=== PATIENT | male | born 1940 | race Caucasian/White ===

== ENCOUNTER → 2017-11-12 | Outpatient (CLI) | payer MEDICARE, BC ==
[~2017-11-12] MED LIST: ADULT LOW DOSE81 MG PO; AGGRENOX CAPSU1 EACH PO; FISH OIL 1,001000 MG PO; MULTIVITAMINS PO; PROTONIX40 M2 PO
--- NOTE | 2017-11-24 23:34 | ONC ---
[place] [address] RADIATION ONCOLOGY NOTE Name: GARRETT BEAR Room: [facility]#: [id number] Admission: 11/12/17 Attend Phys: Blaise Inman MD Discharge: Date of : 42 Report #: [id number] THIS REPORT FOR: //name// CC: Blaise Mckinnon MD DATE OF SERVICE: 11/12/2017 REFERRING PHYSICIANS: Dr. Casa Mckinnon, Dr. Carlos A Maza, Dr. Lorenzo Charles, Dr. Hurtado. [facility] phone is [phone]. PRIMARY SITE AND HISTOPATHOLOGY: The patient has a stage III base of tongue cancer and he underwent chemoradiotherapy and completed radiation therapy on 02/12/2011. PROCEDURE: Nasopharyngolaryngoscopy. FINDINGS: On nasopharyngolaryngoscopy, after administration of a small amount of 2% viscous lidocaine orally and 2% viscous lidocaine gel to the left nostril via a cotton swab, there were no visible lesions in the nasopharynx. There were no visible lesions in the posterior oropharynx. The base of tongue had no visible lesions. The true vocal cords were normally mobile bilaterally without any visible lesions. There was no evidence of head and neck cancer. Thank you for allowing me to participate in the care of this patient. <ELECTRONICALLY SIGNED> By: Blaise Inman MD 11/24/17 2334 1211 1320Darosette Inman MD /nt
--- NOTE | 2017-11-24 23:48 | ONC ---
[place] [address] RADIATION ONCOLOGY NOTE Name: GARRETT BEAR Room: [facility]#: [id number] Admission: 11/12/17 Attend Phys: Blaise Inman MD Discharge: Date of : 42 Report #: [id number] THIS REPORT FOR: //name// CC: Blaise Hurtado DATE OF SERVICE: 11/12/2017 [facility] phone is [phone] REFERRING PHYSICIANS: Dr. Casa Mckinnon, Dr. Cevallos, Dr. Ivan Maza, Dr. Lorenzo Charles, Dr. Avila. PRIMARY SITE AND HISTOPATHOLOGY: The patient received chemoradiotherapy for a stage III base of tongue cancer. Radiation therapy was completed on 02/12/2011. INTERVAL NOTE: The patient felt like he was eating well. He started taking CBD essential oils and this has made him feel better. He felt like he was eating better. MEDICATIONS: Include Protonix, fish oil, 75 mcg of levothyroxine per day, Xarelto and Aricept. SOCIAL HISTORY: The patient quit smoking in 1974. He does not smoke at this time. REVIEW OF SYSTEMS: RESPIRATORY: The patient was not short of breath. The patient's breathing was baseline. GASTROINTESTINAL: He has a good appetite. He is eating a regular diet. PHYSICAL EXAMINATION: VITAL SIGNS: The patient weighed 165.6 pounds, he was 172.8 pounds in 11/13/2016. On 11/12/2017 blood pressure was 158/86, pulse 64, respirations 20. LYMPH NODES: No palpable cervical or supraclavicular lymphadenopathy. HEAD, EYES, EARS, NOSE AND THROAT EXAM: Mouth had no suspicious visible lesions or suspicious palpable lesions. On nasopharyngolaryngoscopy, after the patient was given a small amount of 2% viscous lidocaine orally as well as 2% [place] [address] RADIATION ONCOLOGY NOTE Name: GARRETT BEAR [id number] Admission: 11/12/17 Attend Phys: Blaise Inman MD Discharge: Date of : 42 Report #: [id number] lidocaine to the left nostril via a cotton swab, there were no visible lesions in the nasopharynx. There were no visible lesions in the posterior oropharynx. The true vocal cords were normally mobile bilaterally without any visible lesions. There were no lesions at the base of tongue area. HEART: had a regular rate and rhythm without murmur. LUNGS: were clear to auscultation. LABORATORY DATA: From 10/27/2017, TSH was 3.76 on his present dose of 75 mcg of levothyroxine, which was within normal limits. BUN was 19, creatinine 1.29. Sodium 137, potassium 4.1. AST 26, ALT 15. ASSESSMENT AND PLAN: 1. History of head and neck cancer- There is no evidence of head and neck cancer at this time. The patient was given a requisition for a basic metabolic panel in October 2018. He was asked to schedule a follow up appointment to see me afterwards. 2. Hypothyroidism- The patient's TSH was within normal limits on his present dose of 75 mcg levothyroxine, so a refill was given for 75 mcg. levothyroxine. he was given a requisition for a TSH in about 1 year. He was asked to schedule a followup appointment to see me afterwards. 3. Dental care- The patient was given a prescription for PreviDent to use for dental care. 4. Nutrition- The patient was offered a referral to a dietitian for nutritional issues. He felt like he was eating well and he did not wish to see a dietitian. Thank you for allowing me to participate in the care of this patient. <ELECTRONICALLY SIGNED> By: Blaise Inman MD 11/24/17 2348 1216 1741Djoseluis Inman MD /nt
== END ==
LOC: M.RTH 01:29
DX: Z08 Encounter for follow-up examination after completed treatment for malignant neoplasm (principal); E03.9 Hypothyroidism, unspecified; Z85.89 Personal history of malignant neoplasm of other organs and systems

== ENCOUNTER → 2018-05-22 | Outpatient (CLI) | payer MEDICARE, BC ==
--- NOTE | 2018-05-31 11:46 | ONC ---
[place] [address] RADIATION ONCOLOGY NOTE Name: GARRETT BEAR Room: [facility]#: [id number] Admission: 05/22/18 Attend Phys: Blaise Inman MD Discharge: Date of : 41 Report #: [id number] THIS REPORT FOR: //name// CC: Blaise Cevallos DATE OF SERVICE: 05/22/2018 Radiation Oncology Procedure Note REFERRING PHYSICIANS: Carlos A Maza MD; Lorenzo Charles MD; Casa Mckinnon MD; Dr. Hurtado; [facility] phone is [phone]. PRIMARY SITE AND HISTOPATHOLOGY: The patient had a stage III base of tongue cancer and underwent chemoradiotherapy. He completed radiation therapy on 02/12/2011. PROCEDURE: Nasopharyngolaryngoscopy. FINDINGS ON NASOPHARYNGOLARYNGOSCOPY: After administration of small amount of 2% viscous lidocaine orally and 2% viscous lidocaine gel to the left nostril via a cotton swab, there were no visible lesions in the nasopharynx. There were no visible lesions involving the posterior pharynx. The base of tongue had no visible lesions. The true vocal cords were normally mobile bilaterally without any visible lesions. There is no evidence of head and neck cancer. Thank you for allowing me to participate in the care of this patient. <ELECTRONICALLY SIGNED> By: Blaise Inman MD 05/31/18 1146 1246 0024Djoseluis Inman MD /nt
--- NOTE | 2018-05-31 12:01 | ONC ---
[address] [address] RADIATION ONCOLOGY NOTE Name: GARRETT BEAR Room: [facility]#: [id number] Admission: 05/22/18 Attend Phys: Blaise Inman MD Discharge: Date of : 42 Report #: [id number] THIS REPORT FOR: //name// CC: Blaise Hurtado DATE OF SERVICE: 05/22/2018 REFERRING PHYSICIANS: Casa Mckinnon MD; Dr. Cevallos; Carlos A Maza MD; Lorenzo Charles MD; Dr. Hurtado. [facility] phone is [phone]. PRIMARY SITE AND HISTOPATHOLOGY: The patient received chemoradiotherapy for a stage III base of tongue cancer. Radiation therapy was completed on 02/12/2011. INTERVAL NOTE: The patient said that he is being treated for possibly an early stage of dementia. He has issues with swallowing pills. They get stuck and he has been seeing the gastroenterologists, Dr. Mt Howard and Dr. Johansen, to evaluate that issue. He did not feel a dilation helped him last time. MEDICATIONS: Include Protonix, fish oil, 75 mcg of levothyroxine per day, Xarelto, and Aricept. SOCIAL HISTORY: The patient quit smoking in 1974. He does not smoke at this time. REVIEW OF SYSTEMS: RESPIRATORY: The patient was not short of breath. The patient's breathing was baseline. GASTROINTESTINAL: He has a good appetite. He is eating a regular diet. PHYSICAL EXAMINATION: VITAL SIGNS: The patient weighed 164.6 pounds on 05/22/2018, 165.6 pounds 11/12/2017. On 05/22/2018, blood pressure was 126/68, pulse 52, respirations 22, oxygen saturation 98%. LYMPH NODES: She had no palpable cervical or supraclavicular lymphadenopathy. HEAD, EYES, EARS, NOSE AND THROAT: Mouth had no suspicious visible lesions or suspicious palpable lesions. On nasopharyngolaryngoscopy. After the patient was given a small amount of 2% viscous lidocaine orally, as well as 2% viscous lidocaine to the left nostril, there were no visible lesions in the nasopharynx [place] [address] RADIATION ONCOLOGY NOTE Name: GARRETT BEAR Room: [facility]#: [id number] Admission: 05/22/18 Attend Phys: Blaise Inman MD Discharge: Date of : 42 Report #: [id number] lesions in the posterior pharynx. The true vocal cords were normally mobile bilaterally without any visible lesions. There were no lesions in the base of tongue area. HEART: Had a regular rate and rhythm without murmur. LUNGS: were clear to auscultation. LABORATORY DATA: From 10/27/2017, BUN was 19, creatinine 1.29. Sodium 137, potassium 4.1. AST 26, ALT 15, TSH was 3.76. ASSESSMENT AND PLAN: 1. History of head and neck cancer- There is no evidence of head and neck cancer at this time. The patient had a complete metabolic panel ordered in 09/2018. He was asked to schedule a follow up appointment to see me afterwards. 2. Hypothyroidism- The patient's TSH was within normal limits on his present dose of 75 mcg of levothyroxine, so a refill was given for 75 mcg of levothyroxine and a requisition was written for a around 09/2018. He was asked to schedule a follow up appointment to see me afterwards. 3. Nutrition.- The patient now has a full set of dentures. He no longer has his own teeth and he feels like he is able to eat rather well. 4. Mild dysphagia- The patient was referred for a video swallow study. He is already following up with gastroenterology to try to determine why this is occurring. He was asked to follow up with me around 09/2018. His weight is relatively stable in spite of this issue with swallowing pills and he ultimately is able to swallow most foods in his diet. Thank you for allowing me to participate in the care of this patient. <ELECTRONICALLY SIGNED> By: Blaise Inman MD 05/31/18 1201 1251 0052Djoseluis Inman MD /nt
== END ==
LOC: M.RTH 02:32
DX: Z08 Encounter for follow-up examination after completed treatment for malignant neoplasm (principal); E03.9 Hypothyroidism, unspecified; R13.10 Dysphagia, unspecified; Z85.89 Personal history of malignant neoplasm of other organs and systems

== ENCOUNTER 2018-09-04 11:05 | Emergency (ER) | payer MEDICARE, BC ==
[~2018-09-04] VITALS: Ht 180.3 cm; Wt 74.4 kg
[2018-09-04] MEDS ORDERED: SYNTHROID100 MC1 PO (11:20)
[2018-09-04] MEDS ORDERED: ARICEPT 5 MG TAB5 MG PO (11:20)
[2018-09-04] MEDS ORDERED: XARELTO20 MG PO (11:20)
[2018-09-04] MEDS ORDERED: PROTONIX40 M1 PO (11:20)
[2018-09-04] MEDS ORDERED: VITAMIN B-12500 MCG PO (11:20)
[2018-09-04] MEDS ORDERED: FISH OIL 1,001000 M2 PO (11:21)
[2018-09-04] MEDS ORDERED: THERALITH XR T1 EACH PO (11:21)
[2018-09-04] MEDS ORDERED: NEURONTIN100 MG PO (11:21)
[2018-09-04 12:31] VITALS: BP 149/85
== END 2018-09-04 12:32 | disposition home or self-care (01) ==
LOC: M.ERS 11:05
DX: S40.011A Contusion of right shoulder, initial encounter (principal); Z98.890 Other specified postprocedural states; Z85.810 Personal history of malignant neoplasm of tongue; Z90.49 Acquired absence of other specified parts of digestive tract; Z86.73 Personal history of transient ischemic attack (TIA), and cerebral infarction without residual deficits; Z85.46 Personal history of malignant neoplasm of prostate; Z96.653 Presence of artificial knee joint, bilateral; Z88.2 Allergy status to sulfonamides; X58.XXXA Exposure to other specified factors, initial encounter; Y93.89 Activity, other specified; Y92.89 Other specified places as the place of occurrence of the external cause; Y99.8 Other external cause status

== ENCOUNTER → 2018-10-26 | Outpatient (CLI) | payer MEDICARE, BC ==
[~2018-10-26] MED LIST changes: +ARICEPT 5 MG TAB5 MG PO; +FISH OIL 1,001000 M2 PO; +NEURONTIN100 MG PO; +PROTONIX40 M1 PO; +SYNTHROID100 MC1 PO; +THERALITH XR T1 EACH PO; +VITAMIN B-12500 MCG PO; +XARELTO20 MG PO
[2018-10-26 13:31] LABS: CALCIUM 9.2 mg/dL (8.5-10.1); CREATININE 1.4 mg/dL (0.6-1.3); POTASSIUM 4.3 mmol/L (3.5-5.1)
== END ==
LOC: M.LAB 12:54
PROVIDERS: Radiology Radiation Oncology
DX: E03.9 Hypothyroidism, unspecified (principal); Z85.810 Personal history of malignant neoplasm of tongue

== ENCOUNTER → 2018-10-30 | Outpatient (CLI) | payer MEDICARE, BC ==
--- NOTE | 2018-11-04 22:54 | ONC ---
[place] [address] RADIATION ONCOLOGY NOTE Name: GARRETT BEAR Room: [facility]#: [id number] Admission: 10/30/18 Attend Phys: Blaise Inman MD Discharge: Date of : 42 Report #: [id number] THIS REPORT FOR: //name// CC: Blaise Charles MD DATE OF PROCEDURE: 10/30/2018 REFERRING PHYSICIANS: Casa Mckinnon MD. Dr. Hurtado. Dr. Cevallos. Carlos A Maza MD. Lorenzo Charles MD. [facility] phone is [phone]. PRIMARY SITE AND HISTOPATHOLOGY: The patient had a stage III base of tongue cancer and underwent chemoradiotherapy. He completed radiation therapy on 02/12/2011. PROCEDURE: Nasopharyngolaryngoscopy. FINDINGS: On nasopharyngolaryngoscopy, after administration of a small amount of 2% viscous lidocaine orally and 2% viscous lidocaine gel to the left nostril via a cotton swab, there were no visible lesions in the nasopharynx. There were no visible lesions in the posterior pharynx. The base of tongue had no visible lesions. The true vocal cords were normally mobile bilaterally without any visible lesions. There was no evidence of head and neck cancer. Thank you for allowing me to participate in the care of this patient. <ELECTRONICALLY SIGNED> By: Blaise Inman MD 11/04/18 2254 1036 2045Blaise Inman MD /nt
--- NOTE | 2018-11-04 23:07 | ONC ---
[place] [address] RADIATION ONCOLOGY NOTE Name: GARRETT BEAR Room: [facility]#: [id number] Admission: 10/30/18 Attend Phys: Blaise Inman MD Discharge: Date of : 42 Report #: [id number] THIS REPORT FOR: //name// CC: Blaise Hurtado DATE OF SERVICE: 10/30/2018 REFERRING PHYSICIANS: Casa Mckinnon MD; Dr. Cevallos; Carlos A Maza MD; Lorenzo Charles MD and Dr. Hurtado. [facility] phone is [phone]. PRIMARY SITE AND HISTOPATHOLOGY: The patient received chemoradiotherapy for a stage III base of tongue cancer. Radiation therapy was completed on 02/12/2011. INTERVAL NOTE: The patient feels likes he is doing reasonably well. He eats sandwiches and tries to be careful when he swallows. He had a video swallow study on 10/09/2018 and he is now going forward with an esophageal dilation around 11/19/2018 to help with swallowing. He is gaining weight. He follows up with his box tender, Dr. Mt Howard and Dr. Johansen. He does take Aricept for the early stages of dementia. MEDICATIONS: Include Protonix, fish oil, 75 mcg of levothyroxine per day, Xarelto, and Aricept. SOCIAL HISTORY: The patient quit smoking in 1974. He does not smoke at this time. REVIEW OF SYSTEMS: RESPIRATORY: The patient was not short of breath. The patient's breathing was baseline. GASTROINTESTINAL: He has a good appetite. He is eating a regular diet. PHYSICAL EXAMINATION: VITAL SIGNS: The patient weighed 169.8 pounds on 10/30/2018 and 164.6 pounds on 05/22/2018. On 10/30/2018, blood pressure was 130/75, pulse 52, respirations 20. LYMPH NODES: The patient had no palpable cervical or suprac[place] [address] RADIATION ONCOLOGY NOTE Name: GARRETT BEAR Room: [facility]#: [id number] Admission: 10/30/18 Attend Phys: Blaise Inman MD Discharge: Date of : 42 Report #: [id number] HEAD, EYES, EARS, NOSE AND THROAT: Mouth had no suspicious visible lesions or suspicious palpable lesions. On nasopharyngolaryngoscopy, after the patient was given a small amount of 2% viscous lidocaine orally as well as 2% viscous lidocaine to left nostril, there were no visible lesions in the nasopharynx. There were no visible lesions in the posterior pharynx. The true vocal cords were normally mobile bilaterally without any visible lesions and there were no visible lesions in the base of tongue area. HEART: Had a regular rate and rhythm without murmur. LUNGS: were clear to auscultation. LABORATORY DATA: From 10/26/2018, sodium 134, potassium 4.3, BUN 17, creatinine 1.4. His previous creatinine on 05/05/2018 was 1.23 and his TSH was elevated at 7.924 with him taking 75 mcg of levothyroxine per day. ASSESSMENT AND PLAN: 1. History of head and neck cancer. There is no evidence of head and neck cancer at this time. The patient had a requisition written for a basic metabolic panel in about 6 months and the patient was asked to schedule a follow up appointment to see me afterwards. 2. Hypothyroidism. The patient's TSH was elevated with him taking 75 mcg of levothyroxine per day. So, he was given a prescription for 88 mcg of levothyroxine, so it was increased to 88 mcg per day. A TSH was ordered in about 6 months and he was asked to schedule a follow up appointment to see me afterwards. 3. Nutrition- The patient has a full set of dentures and looks like his weight has stabilized with him being able to use the dentures. So, it looks like he is eating better now. Thank you for allowing me to participate in the care of this patient. <ELECTRONICALLY SIGNED> By: Blaise Inman MD 11/04/18 2307 1047 2052Djoseluis Inamn MD /nt
== END ==
LOC: M.RTH 05:10
DX: E03.9 Hypothyroidism, unspecified (principal); Z79.899 Other long term (current) drug therapy; Z85.89 Personal history of malignant neoplasm of other organs and systems

== ENCOUNTER → 2019-04-09 | Outpatient (CLI) | payer MEDICARE, BC | LOC: M.RAD 13:55 | DX: R91.8 Other nonspecific abnormal finding of lung field (principal); I51.7 Cardiomegaly ==

== ENCOUNTER → 2019-04-29 | Outpatient (CLI) | payer MEDICARE, BC ==
[2019-04-29 15:34] LABS: CALCIUM 9.7 mg/dL (8.5-10.1); POTASSIUM 3.9 mmol/L (3.5-5.1)
== END ==
LOC: M.LAB 15:02
PROVIDERS: Radiology Radiation Oncology
DX: E03.9 Hypothyroidism, unspecified (principal)

== ENCOUNTER → 2019-05-07 | Outpatient (CLI) | payer MEDICARE, BC ==
--- NOTE | ~2019-05-07 | ONC ---
[address] [address] RADIATION ONCOLOGY NOTE Name: GARRETT BEAR Room: [facility]#: [id number] Admission: 05/07/19 Attend Phys: Blaise Inman MD Discharge: Date of : 42 Report #: [id number] THIS REPORT FOR: //name// CC: Lisa Inman DATE OF SERVICE: 05/07/2019 RADIATION ONCOLOGY FOLLOWUP NOTE REFERRING PHYSICIANS: SUSAN Brooks; Dr. Hurtado; Lorenzo Charles MD; and Dr. Mcgowan. [facility] phone is [phone]. PRIMARY SITE AND HISTOPATHOLOGY: The patient received chemotherapy and radiation therapy for stage 3 base of tongue cancer. Radiation therapy was completed on 02/12/2011. INTERVAL NOTE: The patient indicated he is going to be seeing his professor of biological sciences, Dr. Mcgowan on 05/20/2019 to have an esophageal dilation. He feels like he has a good appetite and he thinks esophageal dilation may help him regain some of his weight. He takes about 1 Boost supplement at night. He wears upper and lower dentures. He also takes Aricept for early stages of dementia and does receive palliative care. MEDICATIONS: Include Protonix, 88 mcg of levothyroxine per day, Xarelto, and Aricept. SOCIAL HISTORY: The patient quit smoking in 1974 and he does not smoke at this time. REVIEW OF SYSTEMS: RESPIRATORY: The patient was not short of breath. The patient's breathing was baseline. GASTROINTESTINAL: The patient has good appetite. He is eating a regular diet. PHYSICAL EXAMINATION: VITAL SIGNS: The patient weighed 144.4 pounds on 05/07/2019. He was 169.8 pounds on 10/30/2018. On 05/07/2019, patient's blood pressure was 111/87, pulse 50, respirations 18, oxygen saturation 100%. LYMPH NODES: The patient had no palpable cervical or supraclavicular lymphadenopathy. HEAD, EYES, EARS, NOSE, AND THROAT: Mouth had no suspicious visible lesions or suspicious palpable lesions. On nasopharyngolaryngoscopy, after the patient was given a small amount of 2% viscous lidocaine orally as well as 2% [place] [address] RADIATION ONCOLOGY NOTE Name: GARRETT BEAR Room: [facility]#: [id number] Admission: 05/07/19 Attend Phys: Blaise Inman MD Discharge: Date of : 42 Report #: [id number] lidocaine to left nostril, there were no visible lesions in the nasopharynx. There were no visible lesions in the posterior oropharynx. The true vocal cords were normally mobile bilaterally without any visible lesions. There were no visible lesions at the base of tongue area. HEART: Had a regular rate and rhythm without murmur. LUNGS: Clear to auscultation. LABORATORY DATA: From 04/29/2019; sodium was 132, potassium 3.9, BUN 20, creatinine 1.0 and his TSH was 3.069 which was within normal limits, on his present dose of 88 mcg of levothyroxine per day. ASSESSMENT AND PLAN: 1. History of head and neck cancer. There is no evidence of head and neck cancer at this time. The patient was given a requisition for complete blood count, complete metabolic panel. In 07/2019, the patient was asked to schedule a followup appointment to see me afterwards. 2. Hypothyroidism. The patient's TSH was within normal limits with him taking 88 mcg of levothyroxine per day. The patient was given a refill for 88 mcg of levothyroxine to be taken per day and TSH was ordered in about 3 months and the patient was asked to schedule a followup appointment to see me afterwards. 3. Weight loss -- the patient may have an esophageal stricture. He said he was having an esophageal dilation on 05/20/2019. He feels like he has a good appetite. He is told to weigh himself and to decrease the amount of Boost supplement he takes until he stabilizes his weight. He is offered Marinol, but he felt like he can adjust his intake of the Boost supplement to stabilize his weight. Again, lab work was ordered in about 3 months and the patient was asked to schedule a followup appointment to see me afterwards. Thank you for allowing me to participate in the care of this patient. By: 1213 2148Blaise Inman MD /rip
--- NOTE | ~2019-05-07 | ONC ---
[address] [address] RADIATION ONCOLOGY NOTE Name: GARRETT BEAR Room: [facility]#: [id number] Admission: 05/07/19 Attend Phys: Blaise Inman MD Discharge: Date of : 42 Report #: [id number] THIS REPORT FOR: //name// CC: Lisa Inman DATE OF SERVICE: 05/07/2019 REFERRING PHYSICIANS: Nurse practitioner, Dr. Lo, also Dr. Hurtado, Dr. Mcgowan, and also Dr. Lorenzo Charles. [facility] phone is [phone]. PRIMARY SITE AND HISTOPATHOLOGY: The patient had a stage 3 base of tongue cancer and underwent chemotherapy and radiation therapy. He completed radiation therapy on 02/12/2011. PROCEDURE: Nasopharyngolaryngoscopy. FINDINGS: On nasopharyngolaryngoscopy, after administration of a small amount of 2% viscous lidocaine orally and 2% viscous lidocaine gel to the left nostril via cotton swab. There were no visible lesions in the nasopharynx. There were no visible lesions in the posterior oropharynx. The base of tongue had no visible lesions. The true vocal cords are normally mobile bilaterally without any visible lesions. There is no evidence of head and neck cancer. Thank you for allowing me to participate in the care of this patient. By: 1045 1123Djoseluis Inman MD /rip
== END ==
LOC: M.RTH 04:53
DX: Z08 Encounter for follow-up examination after completed treatment for malignant neoplasm (principal); E03.9 Hypothyroidism, unspecified; R63.4 Abnormal weight loss; Z85.810 Personal history of malignant neoplasm of tongue

== ENCOUNTER → 2019-08-05 | Outpatient (CLI) | payer MEDICARE, BC ==
[2019-08-05 08:53] LABS: HEMOGLOBIN 12.9 gm/dL (14.0-18.0); MCH 26.9 pg (26.0-34.0); MCHC 33.2 g/dL (28.0-37.0); MCV 81.2 fL (80.0-100.0); MPV 9.4 fl. (7.2-11.1); NUCLEATED RBCS 0 /100WBC; PLATELET COUNT* 285 thou/uL (150-400); RDW-CV 18.2 % (10.5-14.5); WBC 17.7 thou/uL (4.0-11.0)
[2019-08-05 09:06] LABS: ALBUMIN 3.1 g/dL (3.4-5.0); CALCIUM 8.6 mg/dL (8.5-10.1); CREATININE 1.4 mg/dL (0.6-1.3); POTASSIUM 4.1 mmol/L (3.5-5.1); TOTAL BILIRUBIN 1.4 mg/dL (<0.1-1.0); TOTAL PROTEIN 7.4 g/dL (6.4-8.2)
[2019-08-05 09:46] LABS: ABSOLUTE BASOPHILS 0.4 thou/uL (0.0-0.2); ABSOLUTE EOSINOPHILS 0.4 thou/uL (0.0-0.7); ABSOLUTE LYMPHOCYTES 0.9 thou/uL (0.8-5.3); ABSOLUTE MONOCYTES 0.2 thou/uL (0.0-1.2); ABSOLUTE NEUTROPHILS 15.9 thou/uL (1.6-8.1); ANISOCYTOSIS 1+; METAMYELOCYTES 5 %; PLATELET ESTIMATE ADEQUATE
== END ==
LOC: M.LAB 08:31
PROVIDERS: Radiology Radiation Oncology
DX: E03.9 Hypothyroidism, unspecified (principal); Z85.810 Personal history of malignant neoplasm of tongue

== ENCOUNTER → 2019-08-06 | Outpatient (CLI) | payer MEDICARE, BC ==
--- NOTE | ~2019-08-06 | ONC ---
[address] [address] RADIATION ONCOLOGY NOTE Name: GARRETT BEAR Room: [facility]#: [id number] Admission: 08/06/19 Attend Phys: Blaise Inman MD Discharge: Date of : 42 Report #: [id number] THIS REPORT FOR: //name// CC: Lisa Inman DATE OF SERVICE: 08/06/2019 RADIATION ONCOLOGY PROCEDURE NOTE The referring healthcare professionals include Lisa Lo, nurse practitioner, Dr. Hurtado, Dr. Mcgowan, and Lorenzo Charles MD. [facility] phone is [phone]. PRIMARY SITE AND HISTOPATHOLOGY: The patient has stage 3 base of tongue cancer, underwent chemotherapy and radiation therapy. The patient completed radiation therapy on 02/12/2011. PROCEDURE: Nasopharyngolaryngoscopy. FINDINGS ON NASOPHARYNGOLARYNGOSCOPY: After administration of a small amount of 2% viscous lidocaine orally and 2% viscous lidocaine gel to the left nostril via cotton swab, there were no visible lesions in the nasopharynx. There were no visible lesions in the posterior oropharynx. Base of tongue had no visible lesions. True vocal cords were normally mobile bilaterally without any visible lesions. There was no evidence of head and neck cancer. Thank you for allowing me to participate in the care of this patient. By: 1330 1340MD lily Munson
--- NOTE | ~2019-08-06 | ONC ---
[address] [address] RADIATION ONCOLOGY NOTE Name: GARRETT BEAR Room: [facility]#: [id number] Admission: 08/06/19 Attend Phys: Blaise Inman MD Discharge: Date of : 42 Report #: [id number] THIS REPORT FOR: //name// CC: Lisa Inman DATE OF SERVICE: 08/06/2019 REFERRING PHYSICIANS: 1. Lisa Lo NP 2. Dr. Hurtado 3. Lorenzo Charles MD 4. Dr. Mcgowan [facility] phone is [phone]. PRIMARY SITE AND HISTOPATHOLOGY: The patient received chemotherapy and radiation therapy for stage 3 base of tongue cancer. Radiation therapy was completed on 02/12/2011. INTERVAL NOTE: The patient feels like he is eating very well at this point and he is gaining weight. He wears upper and lower dentures. He also takes Aricept for early stages of dementia. MEDICATIONS: Include Protonix 88 mcg of levothyroxine, though he has been taking 75 mcg of levothyroxine most of the time, Xarelto, and Aricept and he is also started on oxycodone for pain control for back pain and which he feels works and he takes anywhere from 0 to 2 a day. SOCIAL HISTORY: The patient quit smoking in 1974. He does not smoke at this time. REVIEW OF SYSTEMS: RESPIRATORY: The patient was not short of breath. The patient's breathing was baseline. GASTROINTESTINAL: The patient has a good appetite. He is eating a regular diet. PHYSICAL EXAMINATION: VITAL SIGNS: The patient's weight was 169.2 pounds on 08/06/2019 and 144.4 pounds on 05/07/2019. On 08/06/2019, blood pressure is 149/69, pulse 55, respirations 20, and oxygen saturation was 96%. LYMPH NODES: The patient had no palpable cervical or supraclavicular lymphadenopathy. HEAD, EYES, EARS, NOSE, AND THROAT: Mouth had no suspicious visible lesions or suspicious palpable lesions. On nasopharyngolaryngoscopy, [place] [address] RADIATION ONCOLOGY NOTE Name: GARRETT BEAR Room: [facility]#: [id number] Admission: 08/06/19 Attend Phys: Blaise Inman MD Discharge: Date of : 42 Report #: [id number] given a small amount of 2% viscous lidocaine orally as well as 2% viscous lidocaine to left nostril, there were no suspicious visible lesions in the nasopharynx. There were no suspicious visible lesions in the posterior oropharynx. True vocal cords are normally mobile bilaterally without any visible lesions. There were no visible lesions in the base of tongue area. HEART: Had a regular rate and rhythm without murmur. LUNGS: Clear to auscultation. LABORATORY DATA: From 08/05/2019, TSH was 5.834 but the patient had been taking 75 mcg of levothyroxine instead of the 88 mcg he was prescribed and also his sodium was 140, potassium was 4.1, BUN 23, creatinine 1.4, AST 42, and total bilirubin 1.4. ASSESSMENT AND PLAN: 1. History of head and neck cancer. There is no evidence of head and neck cancer at this time. The patient was given a requisition for complete blood count and basic metabolic panel in 05/2020. He was asked to schedule a followup appointment to see me afterwards. 2. Hypothyroidism. The patient's TSH was slightly elevated, and he has been taking 75 mcg of levothyroxine instead of 88 mcg of levothyroxine, so he was given a refill for 88 mcg of levothyroxine and he was given a requisition for TSH in 05/2020 and followup with me afterwards. 3. Nutrition. The patient is gaining weight. He is eating well. 4. Actinic keratosis type lesions on his scalp and hands. He used to follow up with the senior vice president, Dr. Harry, who is retired, so he will be referred to senior vice president, Dr. Vera to assess and manage his actinic keratoses/some damaged skin. Thank you for allowing me to participate in the care of this patient. ADDENDUM: REFERRING PHYSICIANS: Lisa Lo, nurse practitioner; Dr. Hurtado; Dr. Lorenzo Charles and Dr. Mcgowan. [facility] phone is [phone]. PRIMARY SITE AND HISTOPATHOLOGY: The patient received chemotherapy and radiation therapy for stage 3 base of tongue cancer. Radiation therapy was completed on 02/12/2011. This is an interval note. The patient also had a complete blood count on 08/05/2019 with a white blood count that was elevated at 17.7, hemoglobin was 12.9, platelets were 285,000. He had a bit of a cough when he came in, [place] [address] RADIATION ONCOLOGY NOTE Name: GARRETT BEAR Room: [facility]#: [id number] Admission: 08/06/19 Attend Phys: Blaise Inman MD Discharge: Date of : 42 Report #: [id number] azithromycin and I asked my nurse to inform his primary care staff about the elevated white count, so that he can follow up with the patient in case he has an upper respiratory infection. Thank you very much for allowing me to participate in the care of this patient. By: [id number] Inman MD /nt
== END ==
LOC: M.RTH 05:00
DX: Z08 Encounter for follow-up examination after completed treatment for malignant neoplasm (principal); E03.9 Hypothyroidism, unspecified; L57.0 Actinic keratosis; Z85.9 Personal history of malignant neoplasm, unspecified